=== PATIENT | female | born 1950 | race Caucasian/White ===

== ENCOUNTER 2018-09-20 15:07 | Emergency (ER) | payer MEDICARE, OTHER ==
--- NOTE | 2018-09-20 16:19 | RAD ---
LEFT FOREARM TWO VIEWS: 09/20/18 HISTORY: Left arm injury. FINDINGS: Images include a lateral view and an oblique view. A true AP view is not included. Radius and ulna are intact without acute fracture evident. Degenerative changes of the wrist and elbo w. IMPRESSION: No acute osseous abnormalities are demonstrated. POS: [facility]
[2018-09-20] MEDS ORDERED: HYDROcodone/Acetaminophen 5/325 mg Tablet ONE (16:23)
--- NOTE | 2018-09-20 16:35 | RAD ---
LEFT HUMERUS TWO VIEWS: 09/20/18 HISTORY: Left arm injury. FINDINGS: Impacted oblique fracture of the surgical neck of the left humerus is present with minimal medial dis placement of the distal fragment. Humeral shaft is otherwise intact. Greater tuberosity is displaced minimally as a fragment. IMPRESSION: Left humeral head and neck fracture. POS: [facility]
== END 2018-09-20 16:49 | disposition home or self-care (01) ==
LOC: MADERS 15:07
DX: S42.292A Other displaced fracture of upper end of left humerus, initial encounter for closed fracture (principal); E11.9 Type 2 diabetes mellitus without complications; E78.5 Hyperlipidemia, unspecified; I10 Essential (primary) hypertension; W01.0XXA Fall on same level from slipping, tripping and stumbling without subsequent striking against object, initial encounter; Y92.008 Other place in unspecified non-institutional (private) residence as the place of occurrence of the external cause

== ENCOUNTER 2025-07-16 08:11 | Emergency (ER) | payer MEDICARE ==
[2025-07-16 08:30] LABS: Glucose, Urine (Dipstick) Negative (Negative); Leukocyte Small (Negative); Protein, Urine (Dipstick) Negative (Neg-Trace); Specific Gravity, Urine Greater/Equal 1.030 (1.005-1.030)
[2025-07-16 08:37] LABS: Bacteria/HPF 1+ HPF (None Seen); CAUTI Indications for Culture Dysuria,urgency,freq; WBC/HPF 21-50 HPF (0-3)
[2025-07-16 08:39] LABS: Urine Culture Reflex Yes Yes
== END 2025-07-16 08:48 | disposition home or self-care (01) ==
LOC: MADERS 08:11
DX: N39.0 Urinary tract infection, site not specified (principal); E11.9 Type 2 diabetes mellitus without complications; E78.5 Hyperlipidemia, unspecified; I10 Essential (primary) hypertension; Z79.899 Other long term (current) drug therapy; Z79.84 Long term (current) use of oral hypoglycemic drugs
CPT/HCPCS: 81001; 87086; 99283